=== PATIENT | male | born 1975 | race Two or more races ===

== ENCOUNTER 2017-09-08 06:22 | Emergency (ER) | payer SELFPAY ==
[~2017-09-08] VITALS: Ht 175.3 cm; Wt 81.2 kg
--- NOTE | 2017-09-08 06:30 | NUR ---
[facility] FOR UNDER THE INFLUENCE, PT ADMITS TO TAKING DRUGS AND DRINKING, REFUSED TO SPECIFY, PT REFUSES TO ANSWER OTHER QUESTIONS. PT AO RR EVEN AND UNLABORED. NO SOB NOTED. NAD NOTED. NO NVD AT THIS TIME. PT GOWNED AND PLACED ON MONITOR WAITING FOR MD VALERIO.
--- NOTE | 2017-09-08 06:31 | NUR ---
LAB AT BEDSIDE FOR BLOOD DRAW
--- NOTE | 2017-09-08 06:34 | NUR ---
DR. GONZALEZ AT BEDSIDE FOR EVAL.
[2017-09-08 07:04] LABS: BASOPHILS % (AUTO) 0.2 % (0.0-2.0); EOSINOPHILS % (AUTO) 0.1 % (0.0-6.0); HEMATOCRIT 41 % (39-51); HEMOGLOBIN 14.3 g/dL (13.5-17.5); LYMPHOCYTES # (AUTO) 1.4 /CMM (0.8-4.8); LYMPHOCYTES % (AUTO) 12.4 % (20.0-44.0); MEAN CORPUSCULAR HEMOGLOBIN 32 PG (26.0-33.0); MEAN CORPUSCULAR HGB CONC 35 g/dl (31.0-36.0); MEAN CORPUSCULAR VOLUME 90 fL (80-96); MONOCYTES # (AUTO) 0.9 /CMM (0.1-1.30); MONOCYTES % (AUTO) 7.6 % (2.0-12.0); NEUTROPHILS # (AUTO) 8.9 /CMM (1.8-8.9); NEUTROPHILS % (AUTO) 79.7 % (43.0-81.0); PLATELET COUNT (AUTO) 283 /CMM (150-450); RDW COEFFICIENT OF VARIATION 12.9 (11.5-15.0); RED BLOOD CELL COUNT(AUTO) 4.54 MIL/uL (4.5-6.0); WHITE BLOOD COUNT (AUTO) 11.2 K/uL (4.3-11.0)
[2017-09-08 07:09] LABS: CALCIUM, SERUM 8.9 mg/dL (8.5-10.1); CARBON DIOXIDE 25 mmol/L (21-32); CHLORIDE 104 mmol/L (98-107); GLUCOSE 120 mg/dL (74-106); SODIUM SERUM 141 mmol/L (136-145); UREA NITROGEN, BLOOD 25 mg/dL (7-18)
[2017-09-08] MEDS ORDERED: ONDANSETRON HCL/PF 4 MG/2 ML VIAL ONE (07:11)
[2017-09-08 07:14] LABS: ALANINE AMINOTRANSFERASE 39 U/L (12-78); ALBUMIN 3.7 g/dL (3.4-5.0); ALCOHOL, BLOOD < 3 mg/dL (0-0); ALKALINE PHOSPHATASE 58 U/L (46-116); ASPARTATE AMINOTRANSFERASE 39 U/L (15-37); BILIRUBIN,DIRECT 0.2 mg/dL (0.0-0.2); BILIRUBIN,TOTAL 0.5 mg/dL (0.2-1.0); TOTAL PROTEIN, SERUM 7.8 g/dL (6.4-8.2)
[2017-09-08] MEDS: IV NS 0.9% 1,000 ML BAG IV ONE (07:14)
[2017-09-08] MEDS: ONDANSETRON HCL/PF 4 MG/2 ML VIAL IVP ONE (07:14)
[2017-09-08] MEDS: Thiamine 100 MG in IV D5W 50 ML IV SCH (07:15)
--- NOTE | 2017-09-08 07:15 | NUR ---
REPORT GIVEN TO XUAN LYNCH.
[2017-09-08 07:16] LABS: ACETAMINOPHEN 0 ug/ml (10-30); SALICYLATE 2.4 mg/dL (2.8-20.0)
[2017-09-08] MEDS: IV NS 0.9% 1,000 ML IV ONE (08:45)
--- NOTE | 2017-09-08 09:13 | NUR ---
[facility]UD[facility] MIDDLETON CALLED FOR EVAL PER DR GONZALEZ
[2017-09-08 11:36] VITALS: BP 146/72
== END 2017-09-08 11:37 | disposition home or self-care (01) ==
LOC: ER 06:27
DX: F29 Unspecified psychosis not due to a substance or known physiological condition (principal); F10.10 Alcohol abuse, uncomplicated
CPT/HCPCS: 36415; 80048-TC; 80076-TC; 85025-TC; A4606; G0480; J2405; J3411; J7030; J7060; Z7610